=== PATIENT | male | born 2000 | race Caucasian/White ===

== ENCOUNTER → 2023-01-10 16:05 | Outpatient (BNVA) | payer MEDICAID, SELFPAY | PROVIDERS: Family Provider Family Medicine; PCP Family Medicine; Visit Provider Psychiatry & Neurology Psychiatry | DX: Z79.899 Other long term (current) drug therapy (principal); F20.9 Schizophrenia, unspecified; F15.11 Other stimulant abuse, in remission; F33.1 Major depressive disorder, recurrent, moderate | CPT/HCPCS: 80053; 80061; 83036; 84443; 85025 ==